=== PATIENT | female | born 1960 | race Caucasian/White ===

== ENCOUNTER 2019-09-27 12:01 | Emergency (ER) | payer OTHER, SELFPAY ==
[2019-09-27] MEDS ORDERED: LIDOCAINE 1% W/EPI 1:100,000 MDV 20 ML VIAL ONE (12:18)
--- NOTE | 2019-09-27 12:52 | ER ---
Nurse's Notes [facility] Name: Pippa St Age: 58 yrs Sex: Female : 1960 Arrival Date: 09/27/2019 Time: 12:04 Bed 19 Private MD: Capri Scott H Diagnosis: Left hand laceration Presentation: 09/26 12:12 Chief complaint: Patient states: Laceration to top of L hand that occurred 45 minutes ss ago while cleaning glass. Coronavirus screen: Proceed with normal triage. Ebola Screen: Patient denies exposure to infectious person. Patient denies travel to an Ebola-affected area in the 21 days before illness onset. Complicating Factors: There are no complicating factors for this patient. Initial Sepsis Screen: Does the patient meet any 2 criteria? No. Patient's initial sepsis screen is negative. Does the patient have a suspected source of infection? No. Patient's initial sepsis screen is negative. Risk Assessment: Do you want to hurt yourself or someone else? Patient reports no desire to harm self or others. Onset of symptoms was September 27, 2019. 12:12 Method Of Arrival: Ambulatory ss 12:12 Acuity: TORRI 4 ss Historical: - Allergies: 12:15 Minocin; ss - PSHx: 12:15 Tubal ligation; Appendectomy; skin graft left arm; breast implants; Hysterectomy; ss - Immunization history:: Adult Immunizations up to date. - Social history:: Smoking status: Patient denies any tobacco usage or history of. Screenin:59 Abuse screen: Denies threats or abuse. Nutritional screening: No deficits noted. Tuberculosis screening: No symptoms or risk factors identified. Fall Risk None identified. Assessment: 12:15 General: Appears uncomfortable, Behavior is calm, cooperative. Pain: Denies pain. Neuro: Level of Consciousness is awake, alert, Oriented to person, place, time. Cardiovascular: Heart tones S1 S2 Capillary refill < 3 seconds Patient's skin is warm and dry. Respiratory: Airway is patent Respiratory effort is even, unlabored, Respiratory pattern is regular, symmetrical, Breath sounds are clear bilaterally. GI: Bowel sounds present X 4 quads. : No signs and/or symptoms were reported regarding the genitourinary system. EENT: No signs and/or symptoms were reported regarding the EENT system. Derm: No signs and/or symptoms reported regarding the dermatologic system. Musculoskeletal: Circulation, motion, and sensation intact. Capillary refill Reports. Injury Description: Laceration sustained to dorsum of left hand is jagged, 2.6 to 7.5 cm long, was sustained 30-60 minutes ago. is bleeding moderately a dressing was applied. Vital Signs: 12:12 Resp 16; Weight 62.6 kg; Height 5 ft. 7 in. (170.18 cm); Pain 5/10; ss 12:15 BP 139 / 79; Pulse 74; Resp 17; Temp 98.6; Pulse Ox 100% ; 12:15 Pain 6/10; ss 13:01 BP 138 / 74; Pulse 75; Resp 18; Pulse Ox 98% ; 12:12 Body Mass Index 21.61 (62.60 kg, 170.18 cm) ED Course: 12:04 Patient arrived in ED. am2 12:04 Capri Scott DO is Private Physician. am2 12:08 Julian Hidalgo MD is Attending Physician. ps1 12:14 Triage completed. 12:15 Arm band placed on right wrist. 12:50 Capri Scott DO is Referral Physician. [facility] 12:51 Mariana Gar RN is Primary Nurse. 12:59 Patient has correct armband on for positive identification. Bed in low position. Call light in reach. 13:00 Assist provider with laceration repair on left hand using sutures. Set up tray. ah Performed by Julian Hidalgo MD Dressed with Kerlix, Neosporin, Patient tolerated well. wrist splint applied. 13:12 Patient did not have IV access during this emergency room visit. Administered Medications: No medications were administered Outcome: 12:51 Discharge ordered by . ps1 13:02 Discharged to home ambulatory. 13:02 Condition: good 13:02 Discharge instructions given to patient, Instructed on discharge instructions, wound care, Demonstrated understanding of instructions, follow-up care. 13:12 Patient left the ED. Signatures: Teri Conde RN RN Brit Palacio 2 Julian Hidalgo MD MD ps1 Mariana Gar RN RN
--- NOTE | 2019-09-27 12:52 | EDPHYS ---
Physician Documentation [facility] Name: Pippa St Age: 58 yrs Sex: Female : 1960 Arrival Date: 09/27/2019 Time: 12:04 Bed 19 Private MD: Capri Scott H ED Physician Julian Hidalgo HPI: 09/26 12:42 This 58 yrs old Female presents to ER via Ambulatory with complaints of ps1 Laceration To Arm, Laceration To Hand. 12:42 Patient was working with a friend and did not see a piece of glass that was hanging ps1 under a cabinet. Has a laceration to dorsal aspect of left hand. Laceration is irregular Appx 8 cm in length with tag. Bleeding controlled REFRIGERATOR TESTER with pressure. Pain is mild. FROM. . Historical: - Allergies: 12:15 Minocin; ss - PSHx: 12:15 Tubal ligation; Appendectomy; skin graft left arm; breast implants; Hysterectomy; ss - Immunization history:: Adult Immunizations up to date. - Social history:: Smoking status: Patient denies any tobacco usage or history of. ROS: 12:42 Constitutional: Negative for fever, chills, and weight loss, Eyes: Negative for injury, ps1 pain, redness, and discharge, ENT: Negative for injury, pain, and discharge, Cardiovascular: Negative for chest pain, palpitations, and edema, Respiratory: Negative for shortness of breath, cough, wheezing, and pleuritic chest pain, Abdomen/GI: Negative for abdominal pain, nausea, vomiting, diarrhea, and constipation, Skin: Negative for injury, rash, and discoloration. 12:42 MS/extremity: Positive for laceration, tenderness, of the dorsum of left hand. Exam: 12:42 Constitutional: This is a well developed, well nourished patient who is awake, alert, ps1 and in no acute distress. Head/Face: Normocephalic, atraumatic. Eyes: Pupils equal round and reactive to light, extra-ocular motions intact. Lids and lashes normal. Conjunctiva and sclera are non-icteric and not injected. Neck: Trachea midline, no thyromegaly or masses palpated, and no cervical lymphadenopathy. Supple, full range of motion without nuchal rigidity, or vertebral point tenderness. No Meningismus. 12:42 Chest/axilla: Inspection: normal. 12:42 Cardiovascular: Rate: normal, Rhythm: regular. 12:42 Respiratory: the patient does not display signs of respiratory distress, Respirations: normal. 12:42 Abdomen/GI: Inspection: abdomen appears normal. 12:42 Musculoskeletal/extremity: Extremities: grossly normal except: noted in the dorsum of left hand: laceration. Vital Signs: 12:12 Resp 16; Weight 62.6 kg; Height 5 ft. 7 in. (170.18 cm); Pain 5/10; ss 12:15 BP 139 / 79; Pulse 74; Resp 17; Temp 98.6; Pulse Ox 100% ; ss 12:15 Pain 6/10; ss 13:01 BP 138 / 74; Pulse 75; Resp 18; Pulse Ox 98% ; ah 12:12 Body Mass Index 21.61 (62.60 kg, 170.18 cm) ss Laceration: 12:42 Wound Repair of 8cm ( 3.1in ) subcutaneous laceration to dorsum of left hand. Distal ps1 neuro/vascular/tendon intact. Anesthesia: Local anesthetic administered with 5 mls of 1% lidocaine w/ Epi. Wound prep: Moderate cleansing. Skin closed with 8 5-0 Prolene using simple sutures and sterile technique. Dressed with Bacitracin, 4x4's. Patient tolerated well. MDM: 12:37 Patient medically screened. ps1 12:51 Data reviewed: vital signs, nurses notes, and as a result, I will discharge patient. ps1 Counseling: I had a detailed discussion with the patient and/or guardian regarding: the historical points, exam findings, and any diagnostic results supporting the discharge/admit diagnosis, the need for outpatient follow up, a family practitioner, to return to the emergency department if symptoms worsen or persist or if there are any questions or concerns that arise at home. Administered Medications: No medications were administered Disposition: 09/27/19 12:51 Discharged to Home. Impression: Left hand laceration. - Condition is Stable. - Discharge Instructions: Laceration Care, Adult. - Medication Reconciliation Form, Thank You Letter, Antibiotic Education, Prescription Opioid Use form. - Follow up: Capri Sctot DO; When: 7 - 10 days; Reason: Recheck today's complaints, Continuance of care, Staple/Suture removal, Re-evaluation by your physician. Follow up: Emergency Department; When: As needed; Reason: Fever > 102 F, Worsening of condition. Signatures: Teri Conde RN RN Julian Hidalgo MD MD [facility] Mariana Gar RN RN Corrections: (The following items were deleted from the chart) 12:45 12:42 Patient was working with a friend and did not see a piece of glass that was ps1 hanging under a cabinet. Has a laceration to volar aspect of left hand. Laceration is irregular appx 8cm in length with tag. Bleeding controlled REFRIGERATOR TESTER with pressure. Pain is mild. FROM. . ps1 13:12 12:51 09/27/2019 12:51 Discharged to Home. Impression: Left hand laceration. Condition ah is Stable. Forms are Medication Reconciliation Form, Thank You Letter, Antibiotic Education, Prescription Opioid Use. Follow up: aCpri Scott; When: 7 - 10 days; Reason: Recheck today's complaints, Continuance of care, Staple/Suture removal, Re-evaluation by your physician. Follow up: Emergency Department; When: As needed; Reason: Fever > 102 F, Worsening of condition. ps1
[2019-09-27 13:31] VITALS: TEMP 98.6
[2019-09-27 13:32] VITALS: BP 138/74; O2SAT 98
== END 2019-09-27 13:12 | disposition home or self-care (01) ==
LOC: ER 12:01
PROC: 0JQK0ZZ Repair Left Hand Subcutaneous Tissue and Fascia, Open Approach (ICD-10-PCS; principal; 2019-09-27)
DX: S61.412A Laceration without foreign body of left hand, initial encounter (principal); W25.XXXA Contact with sharp glass, initial encounter; Y93.89 Activity, other specified; Y92.9 Unspecified place or not applicable; Z98.82 Breast implant status; Z88.8 Allergy status to other drugs, medicaments and biological substances
CPT/HCPCS: 99283

== ENCOUNTER 2021-03-12 21:06 | Observation (INO) | payer SELFPAY ==
[2021-03-12 23:07] LABS: SARS-COV-2 RT PCR NEGATIVE (NEGATIVE)
[2021-03-12 23:29] LABS: Urine Blood Negative (Negative); Urine Glucose Negative (Negative); Urine Protein Negative (Negative); Urine Specific Gravity 1.015 (1.005-1.030)
[2021-03-12 23:38] LABS: Absolute Lymphocytes (CBC) 1.9 K/uL (0.7-4.9); Basophils % 0.5 % (0-1.3); Hematocrit 34.5 % (36.0-45.0); Lymphocytes % 32.3 % (15.3-44.8); RBC Red Blood Cell Count 3.74 M/uL (3.86-4.86)
[2021-03-12 23:39] LABS: Protime INR 0.97
[2021-03-12] MEDS ORDERED: NA CHLORIDE 0.9% 250 ML ONE (23:49)
[2021-03-12 23:55] LABS: Urine Bacteria <20 /HPF (<20); Urine RBC NONE SEEN /HPF (NONE SEEN)
[2021-03-12 23:58] LABS: ALT/SGPT 81 U/L (12-78); AST/SGOT 58 U/L (15-37); Albumin 3.8 g/dL (3.4-5.0); Alkaline Phosphatase 85 U/L (45-117); BUN Blood Urea Nitrogen 12 mg/dL (7-18); Bicarbonate 29 mmol/L (21-32); Bilirubin Direct < 0.1 mg/dL (0-0.2); Bilirubin Total 0.2 mg/dL (0.2-1.0); Glucose Level 127 mg/dL (74-106); Lipase 102 U/L (73-393); Magnesium 2.3 mg/dL (1.8-2.4); NT PRO-BNP 180 pg/mL (<125); Protein, Total 7.1 g/dL (6.4-8.2); Sodium Level 143 mmol/L (136-145); Troponin (Emerg Dept Use Only) < 0.02 ng/mL (0.0-0.045)
--- NOTE | 2021-03-13 03:27 | ER ---
Nurse's Notes [facility] Name: Pippa John Age: 60 yrs Sex: Female : 1960 Arrival Date: 03/12/2021 Time: 21:08 Bed 20 Private MD: Diagnosis: Chest pain, unspecified Presentation: 03/12 21:42 Chief complaint: Patient states: Tuesday03/09/21, pt stated shortness of breath, chest vg1 pain, and sore throat, VIVIANE ear pain and cough began and has been getting worse. Pt states nausea and constipation. Stated took Sprague 10 mg around 1930. Coronavirus screen: Vaccine status: Patient reports being unvaccinated. Client presents with at least one sign or symptom that may indicate coronavirus-19. Standard/surgical mask placed on the client. Ebola Screen: Patient negative for fever greater than or equal to 101.5 degrees Fahrenheit, and additional compatible Ebola Virus Disease symptoms. Initial Sepsis Screen: Does the patient meet any 2 criteria? No. Patient's initial sepsis screen is negative. Does the patient have a suspected source of infection? No. Patient's initial sepsis screen is negative. Risk Assessment: Do you want to hurt yourself or someone else? Patient reports no desire to harm self or others. Onset of symptoms was March 09, 2021. 21:42 Method Of Arrival: Ambulatory vg1 21:42 Acuity: TORRI 3 vg1 Triage Assessment: 21:46 General: Appears in no apparent distress. uncomfortable, Behavior is calm, cooperative. vg1 Pain: Complains of pain in VIVIANE ears, throat, and chest. Respiratory: Reports cough that is Onset: The symptoms/episode began/occurred gradually, the patient has mild shortness of breath. Historical: - Allergies: 21:46 Minocin; vg1 21:46 Rocephin; vg1 21:46 Epinephrine; vg1 - Home Meds: 21:46 Sprague 10-325 mg Oral tab [Active]; Temazepam Oral [Active]; vg1 - PSHx: 21:46 Tubal; Skin graft Left arm; Hysterectomy; vg1 - Immunization history:: Adult Immunizations up to date, Client reports having NOT received the Covid vaccine. - Social history:: Smoking status: Patient denies any tobacco usage or history of. Screenin:00 Abuse screen: Denies threats or abuse. Denies injuries from another. Nutritional bs2 screening: No deficits noted. Tuberculosis screening: No symptoms or risk factors identified. Fall Risk None identified. Assessment: 23:00 General: Appears in no apparent distress. comfortable, slender, well groomed, well bs2 developed, well nourished, Behavior is calm, cooperative, appropriate for age. Pain: Complains of pain in chest and abdomen Pain currently is 6 out of 10 on a pain scale. Neuro: No deficits noted. Cardiovascular: Reports chest pain, shortness of breath, Rhythm is regular. Respiratory: Airway is patent Respiratory effort is even, unlabored, Breath sounds are clear bilaterally. GI: No signs and/or symptoms were reported involving the gastrointestinal system. : No signs and/or symptoms were reported regarding the genitourinary system. EENT: No signs and/or symptoms were reported regarding the EENT system. Derm: No signs and/or symptoms reported regarding the dermatologic system. Musculoskeletal: No signs and/or symptoms reported regarding the musculoskeletal system. Vital Signs: 21:42 BP 151 / 73; Pulse 62; Resp 18; Temp 98.3; Pulse Ox 100% ; Weight 58.97 kg; Height 5 vg1 ft. 7 in. (170.18 cm); Pain 5/10; 21:42 Body Mass Index 20.36 (58.97 kg, 170.18 cm) vg1 ED Course: 21:08 Patient arrived in ED. cf2 21:46 Triage completed. vg1 21:46 Arm band placed on. vg1 21:58 EKG completed in triage. Results shown to MD. vg1 22:05 EKG done, COVID swab sent to lab. Flu and/or RSV swab sent to lab. vg1 22:44 Yuli Diehl, YONG is Primary Nurse. bs2 22:47 Jared Hannon PA is PHCP. cp 22:47 Parmjit Will MD is Attending Physician. cp 23:00 Patient has correct armband on for positive identification. Bed in low position. Call bs2 light in reach. Side rails up X 1. ssds mk 2 advanced operator on. Pulse ox on. NIBP on. Door closed. Lights dimmed. Warm blanket given. 23:00 Inserted saline lock: 20 gauge in right antecubital area, using aseptic technique. bs2 Blood collected. 23:27 Urine Microscopic Only Sent. bs2 03/13 00:11 XRAY Chest (1 view) In Process Unspecified. EDMS 01:44 CT Aorta for Dissection Sent. df1 01:50 CT Aorta for Dissection In Process Unspecified. EDMS 03:26 Thien Burk MD is Hospitalizing Provider. cp 05:01 Group A Streptococcus Rapid Sc Sent. df1 05:01 Strep Sent. df1 07:02 No provider procedures requiring assistance completed. bs2 Administered Medications: 03/12 23:27 Drug: NS 0.9% 500 ml Route: IV; Rate: bolus; Site: right antecubital; bs2 03/13 07:03 Follow up: IV Status: Completed infusion bs2 05:01 Drug: morphine 2 mg Route: IVP; Site: right antecubital; df1 Outcome: 03:26 Decision to Hospitalize by Provider. cp 11:06 Patient left the ED. iw Signatures: Dispatcher [employer] EDSharifa De Paz RN RN iw Jared Hannon PA PA Marleni Bhatti cf2 Grace Redman, RN RN vg1 Yuli Diehl RN RN bs2 Lisa Martínez df1
--- NOTE | 2021-03-13 03:27 | EDPHYS ---
Physician Documentation [facility] Name: Pippa John Age: 60 yrs Sex: Female : 1960 Arrival Date: 03/12/2021 Time: 21:08 Bed 20 Private MD: ED Physician Parmjit Will HPI: 03/12 23:15 This 60 yrs old Female presents to ER via Ambulatory with complaints of cp Shortness Of Breath, Chest Pain, Eye Problem, Sore Throat, Arm Burn. 23:15 The patient or guardian reports chest pain that is located primarily in the substernal cp area, epigastric area. 23:15 Onset: 3 day(s) ago. The pain radiates to the left arm, back. Associated signs and cp symptoms: Pertinent positives: cough, shortness of breath, sore throat, Pertinent negatives: diaphoresis, dizziness, lower extremity pain, lower extremity swelling, syncope, vomiting. The chest pain is described as aching. Duration: The patient or guardian reports multiple episodes, that wax and wane. Modifying factors: the symptoms are aggravated by activity. Severity of pain: in the emergency department the pain has improved moderately. Historical: - Allergies: 21:46 Minocin; vg1 21:46 Rocephin; vg1 21:46 Epinephrine; vg1 - Home Meds: 21:46 Shickley 10-325 mg Oral tab [Active]; Temazepam Oral [Active]; vg1 - PSHx: 21:46 Tubal; Skin graft Left arm; Hysterectomy; vg1 - Immunization history:: Adult Immunizations up to date, Client reports having NOT received the Covid vaccine. - Social history:: Smoking status: Patient denies any tobacco usage or history of. ROS: 23:20 Constitutional: Negative for body aches, chills, fever, poor PO intake. cp 23:20 Eyes: Negative for injury, pain, redness, and discharge. cp 23:20 ENT: Positive for sore throat, Negative for drainage from ear(s), ear pain, difficulty swallowing, difficulty handling secretions. 23:20 Neck: Negative for pain with movement, pain at rest, stiffness. 23:20 Cardiovascular: Positive for chest pain, Negative for edema, palpitations. 23:20 Respiratory: Positive for cough, shortness of breath, Negative for wheezing. 23:20 Abdomen/GI: Positive for abdominal pain, Negative for vomiting, diarrhea, constipation. 23:20 Back: Positive for radiated pain. 23:20 Neuro: Negative for altered mental status, dizziness, headache, syncope, weakness. 23:20 All other systems are negative. Exam: 23:25 Constitutional: The patient appears in no acute distress, alert, awake, cp non-diaphoretic, non-toxic, well developed, well nourished. 23:25 Head/Face: Normocephalic, atraumatic. cp 23:25 Eyes: Periorbital structures: appear normal, Pupils: equal, round, and reactive to light and accomodation, Extraocular movements: intact throughout, Conjunctiva: normal, no exudate, no injection, Sclera: no appreciated abnormality, Lids and lashes: appear normal, bilaterally. 23:25 ENT: External ear(s): are unremarkable, Nose: is normal, Mouth: Lips: moist, Oral mucosa: pink and intact, moist, Posterior pharynx: Airway: no evidence of obstruction, patent, Tonsils: are normal in appearance, swelling, is not appreciated, erythema, is not appreciated, exudate, is not appreciated. 23:25 Neck: ROM/movement: is normal, is supple, without pain, no range of motions limitations, no meningismus, Lymph nodes: no appreciated lymphadenopathy. 23:25 Chest/axilla: Inspection: normal, Palpation: is normal, no crepitus, no tenderness. 23:25 Cardiovascular: Rate: normal, Rhythm: regular, Pulses: Pulses are 2+ in right radial artery and left radial artery. Edema: is not appreciated, JVD: is not appreciated. 23:25 Respiratory: the patient does not display signs of respiratory distress, Respirations: normal, no use of accessory muscles, no retractions, labored breathing, is not present, Breath sounds: are clear throughout, no decreased breath sounds, no stridor, no wheezing. 23:25 Abdomen/GI: Inspection: abdomen appears normal, Bowel sounds: active, all quadrants, Palpation: soft, in all quadrants, moderate abdominal tenderness, in the epigastric area, rebound tenderness, is not appreciated, involuntary guarding, is not appreciated. 23:25 Back: CVA tenderness, is absent. 23:25 Skin: no rash present. 23:25 Neuro: Orientation: to person, place \T\ time. Mentation: is normal, Motor: moves all fours, strength is normal, Sensation: is normal. 03/13 02:37 ECG was reviewed by the Attending Physician. cp Vital Signs: 03/12 21:42 BP 151 / 73; Pulse 62; Resp 18; Temp 98.3; Pulse Ox 100% ; Weight 58.97 kg; Height 5 vg1 ft. 7 in. (170.18 cm); Pain 5/10; 21:42 Body Mass Index 20.36 (58.97 kg, 170.18 cm) vg1 MDM: 22:58 Patient medically screened. cp 23:40 Differential diagnosis: abnormal EKG, acute myocardial infarction, acute pericarditis, cp cholecystitis, Cholelithiasis costochondritis, esophagitis, gastritis, pneumonia, pneumothorax, pulmonary embolus, stable angina, unstable angina. 03/13 03:30 Data reviewed: vital signs, nurses notes, lab test result(s), EKG, radiologic studies, cp CT scan, plain films. 03:30 Test interpretation: by ED physician or midlevel provider: ECG, plain radiologic cp studies. Counseling: I had a detailed discussion with the patient and/or guardian regarding: the historical points, exam findings, and any diagnostic results supporting the discharge/admit diagnosis, lab results, radiology results, the need for further work-up and treatment in the hospital. Response to treatment: the patient's symptoms have markedly improved after treatment. Physician consultation: Sonny Belcher was contacted at 03:25, regarding admission, to the telemetry unit. patient's condition. 03/12 23:07 Order name: Basic Metabolic Panel; Complete Time: 00:08 cp 03/13 00:56 Interpretation: Normal except: CL 109; GLUC 127; CRE 0.44. cp 03/12 23:07 Order name: CBC with Diff; Complete Time: 00:08 cp 03/13 00:57 Interpretation: Normal except: RBC 3.74; HGB 11.6; HCT 34.5. cp 03/12 23:07 Order name: LFT's; Complete Time: 00:08 cp 03/13 02:05 Interpretation: Normal except: AST 58; ALT 81. cp 03/12 23:07 Order name: Magnesium; Complete Time: 00:08 cp 03/12 23:07 Order name: NT PRO-BNP; Complete Time: 00:08 cp 03/12 23:07 Order name: PT-INR; Complete Time: 00:08 cp 03/12 23:07 Order name: Troponin (emerg Dept Use Only); Complete Time: 00:08 cp 03/13 02:05 Interpretation: Within normal limits: TROPED < 0.02. cp 03/12 23:07 Order name: Lipase; Complete Time: 00:08 cp 03/13 02:06 Interpretation: Reviewed. cp 03/12 23:07 Order name: Urine Microscopic Only; Complete Time: 00:08 cp 03/12 23:07 Order name: COVID-19/FLU A+B; Complete Time: 00:08 EDMS 03/12 23:28 Order name: Urine Dipstick-Ancillary; Complete Time: 00:08 EDMS 03/13 02:05 Interpretation: Normal except: UESTR 1+. cp 03/13 04:17 Order name: Strep la1 03/12 23:07 Order name: XRAY Chest (1 view) cp 03/12 23:07 Order name: EKG; Complete Time: 23:08 cp 03/12 23:07 Order name: Cardiac monitoring; Complete Time: 23:27 cp 03/12 23:07 Order name: EKG - Nurse/Tech; Complete Time: 23:27 cp 03/12 23:07 Order name: IV Saline Lock; Complete Time: 23:27 cp 03/12 23:07 Order name: Labs collected and sent; Complete Time: 23:27 cp 03/13 00:09 Order name: CT Aorta for Dissection cp 03/13 04:18 Order name: Group A Streptococcus Rapid Sc EDMS 03/13 06:48 Order name: CBC with Automated Diff EDMS 03/13 07:10 Order name: Comprehensive Metabolic Panel EDMS 03/13 07:10 Order name: Troponin I EDMS 03/13 07:10 Order name: Lipid Profile EDMS 03/13 07:10 Order name: T4 Free EDMS 03/13 07:10 Order name: Thyroid Stimulating Hormone EDMS 03/12 23:07 Order name: O2 Per Protocol; Complete Time: 23:27 cp 03/12 23:07 Order name: O2 Sat Monitoring; Complete Time: 23:27 cp 03/12 23:07 Order name: Urine Dipstick-Ancillary (obtain specimen); Complete Time: 23:27 cp EC:37 Rate is 50 beats/min. Rhythm is regular. [place] interval is normal. QRS interval is normal. cp QT interval is normal. T waves are Inverted in leads aVL, aVR. Interpreted by me. Reviewed by me. Administered Medications: 03/12 23:27 Drug: NS 0.9% 500 ml Route: IV; Rate: bolus; Site: right antecubital; bs2 03/13 07:03 Follow up: IV Status: Completed infusion bs2 05:01 Drug: morphine 2 mg Route: IVP; Site: right antecubital; df1 Disposition Summary: 03/13/21 03:26 Hospitalization Ordered Hospitalization Status: Observation cp Provider: Thien Burk cp Condition: Stable cp Problem: new cp Symptoms: have improved cp Bed/Room Type: Standard cp Location: [facility] ER HOLD(03/13/21 04:16) tl1 Room Assignment: ERHOLD-(03/13/21 04:16) tl1 Diagnosis - Chest pain, unspecified cp Forms: - Medication Reconciliation Form cp - SBAR form cp Addendum: 03/14/2021 13:00 Co-signature as Attending Physician, Parmjit Will MD PA/SCRAPPER's history reviewed, m a2 patient interviewed, and examined. I agree with assessment and care plan and confirm the diagnosis (es) above. Signatures: Dispatcher [employer] EDWA Rehana Pimentel, RN RN tl1 Jared Hannon PA PA cp Parmjit Will MD MD maGrace Cristina RN RN vg1 Yuli Diehl RN RN bs2 Lisa Martínez df1 Corrections: (The following items were deleted from the chart) 03/12 22:21 22:01 CORONAVIRUS+MR.LAB.BRZ ordered. EDWA EDMS 22:22 22:01 Influenza Screen (A \T\ B)+BA.LAB.BRZ ordered. EDWA EDWA 03/13 04:16 03:26 Telemetry/MedSurg (observation) cp tl1 04:16 03:26 cp tl1
--- NOTE | 2021-03-13 04:20 | P.HP ---
Certification for Inpatient Patient admitted to: Observation With expected LOS: <2 Midnights Patient will require the following post-hospital care: None Practitioner: I am a practitioner with admitting privileges, knowledge of patient current condition, hospital course, and medical plan of care. Services: Services provided to patient in accordance with Admission requirements found in Title 42 Section 412.3 of the Code of Federal Regulations <YeSonny Heredia - Last Filed: 03/13/21 04:16> Patient History Date of Service: 03/13/21 Primary Care Provider: Dr. Scott Reason for admission: Chest pain History of Present Illness: 60-year-old female who is otherwise healthy presents emergency de partment for chest pain. Patient reports intermittent pressure/tightness of the chest radiating to the shoulders, back over the course of the last few days. Patient was evaluated in the emergency department labs are significant for hemoglobin 9.6 medical 34.5 BNP 180 EKG without acute changes initial troponin negative. Chest pain is not associated with any dizziness lightheadedness, palpitations, nausea, vomiting. Patient has never had cardiac evaluation of any kind and does have family history, ED provider wishes to admit under observation for chest pain rule out. - Past Medical/Surgical History -: None -: Tubal ligation -: Skin graft -: Hysterectomy Psychosocial/ Personal History: Lives at home with family - Family History Father -: Heart disease Mother -: Heart disease - Social History Smoking Status: Former smoker Alcohol use: No CD- Drugs: No Caffeine use: Yes Place of Residence: Home <Sonny Belcher - Last Filed: 03/13/21 04:16> Date of Service: 03/13/21 <Thien Burk - Last Filed: 03/13/21 19:33> Allergies No Known Allergies Allergy (Unverified 08/30/16 12:05) Review of Systems 10-point ROS is otherwise unremarkable ENT: Throat Pain Respiratory: Cough, Dry Cardiovascular: Chest Pain <Sonny Belcher - Last Filed: 03/13/21 04:16> Physical Examination - Physical Exam General: Alert, In no apparent distress, Oriented x3 HEENT: Atraumatic, PERRLA, Mucous membr. moist/pink, EOMI, Sclerae nonicteric Neck: Supple, 2+ carotid pulse no bruit, No LAD, Without JVD or thyroid abnormality Respiratory: Clear to auscultation bilaterally, Normal air movement Cardiovascular: Regular rate/rhythm, Normal S1 S2 Gastrointestinal: Normal bowel sounds, No tenderness Musculoskeletal: No tenderness Integumentary: No rashes Neurological: Normal speech, Normal strength at 5/5 x4 extr, Normal tone, Normal affect - Studies Laboratory Data (last 24 hrs) 03/12/21 23:22: PT 11.1, INR 0.97 03/12/21 23:22: WBC 5.90, Hgb 11.6 L, Hct 34.5 L, Plt Count 198 03/12/21 23:22: Sodium 143, Potassium 4.0, BUN 12, Creatinine 0.44 L, Glucose 127 H, Magnesium 2.3, Total Bilirubin 0.2, AST 58 H, ALT 81 H, Alkaline Phosphatase 85, Lipase 102 <Sonny Belcher - Last Filed: 03/13/21 04:16> - Studies Laboratory Data (last 24 hrs) 03/12/21 23:22: PT 11.1, INR 0.97 03/12/21 23:22: WBC 5.90, Hgb 11.6 L, Hct 34.5 L, Plt Count 198 03/12/21 23:22: Sodium 143, Potassium 4.0, BUN 12, Creatinine 0.44 L, Glucose 127 H, Magnesium 2.3, Total Bilirubin 0.2, AST 58 H, ALT 81 H, Alkaline Phosphatase 85, Lipase 102 <Thien Burk - Last Filed: 03/13/21 19:33> Assessment and Plan - Plan Assessment: Chest pain rule out ACS Plan: Chest pain rule out ACS: Monitor on telemetry, trend troponins, obtain thyroid/lipid panel. Cardiology consult in place, patient has not had any cardiology evaluation in the past, will need to follow-up with PCP and cardiology on discharge. Initial troponin and EKG unremarkable suspect cardiology will prefer outpatient work-up. Initiated beta- scottie/statin/aspirin therapy. As needed pain medication. Patient also does report some viral symptoms including sore throat, cough have ordered strep swab and Mucinex. CT dissection protocol negative for any acute findings. Apprec iate further input from cardiology. DVT PPX: Lovenox Code status: Full Discharge Plan: Home Plan to discharge in: 24 Hours - Advance Directives Does patient have a Living Will: No Does patient have a Durable POA for Healthcare: No - Code Status/Comfort Care Code Status Assessed: Yes (FC) Critical Care: No Time Spent Managing Pts Care (In Minutes): 55 <Sonny Belcher - Last Filed: 03/13/21 04:16>
[2021-03-13] MEDS ORDERED: GUAIFENESIN 600 MG SA TAB PO PRN (04:39)
[2021-03-13] MEDS ORDERED: MORPHINE 2 MG/ML SYR IV PRN (04:39)
[2021-03-13] MEDS ORDERED: ONDANSETRON 4 MG/2 ML VIAL IV PRN (04:39)
[2021-03-13] MEDS ORDERED: NA CHLORIDE 0.9% 0 ML ONE (05:10)
[2021-03-13] MEDS ORDERED: MORPHINE 2 MG/ML SYR ONE (05:10)
[2021-03-13] MEDS ORDERED: METOPROLOL TAR 25 MG TAB PO SCH (06:00)
[2021-03-13 06:41] LABS: Absolute Lymphocytes (CBC) 1.6 K/uL (0.7-4.9); Basophils % 0.4 % (0-1.3); Hematocrit 34.3 % (36.0-45.0); Lymphocytes % 33.2 % (15.3-44.8); MPV 8.6 fL (7.6-11.3); RBC Red Blood Cell Count 3.65 M/uL (3.86-4.86)
--- NOTE | 2021-03-13 07:07 | RAD REPORT ---
EXAM DESCRIPTION: RAD - Chest Single View - 03/13/2021 12:06 am CLINICAL HISTORY: CHEST PAIN COMPARISON: CHEST PA AND LAT 2 VIEW dated 10/09/2014; CHEST SINGLE VIEW dated 02/27/2014; ABDOMEN 1 EW KUB dated 09/25/2012; CHEST PA AND LAT 2 VIEW dated 11/18/2008; Angio Aorta For Dissection dated 03/13/2021 FINDINGS: Lines: None. Lungs: No evidence of edema or pneumonia. Pleural: No significant pleural effusions or pneumothorax. Cardiac: The heart size is within normal limits. Bones: No acute fractures. Other: IMPRESSION: No acute cardiopulmonary disease.
[2021-03-13 07:10] LABS: ALT/SGPT 101 U/L (12-78); AST/SGOT 67 U/L (15-37); Albumin 3.6 g/dL (3.4-5.0); Alkaline Phosphatase 82 U/L (45-117); BUN Blood Urea Nitrogen 8 mg/dL (7-18); Bicarbonate 23 mmol/L (21-32); Bilirubin Total 0.3 mg/dL (0.2-1.0); Glucose Level 106 mg/dL (74-106); HDL Cholesterol 64 mg/dL (40-60); LDL Cholesterol, Calculated 107 (<130); Protein, Total 6.6 g/dL (6.4-8.2); Sodium Level 143 mmol/L (136-145); Troponin I < 0.02 ng/mL (0.0-0.045)
[2021-03-13] MEDS ORDERED: ASPIRIN EC 81 MG TAB PO SCH (09:00)
[2021-03-13] MEDS ORDERED: ENOXAPARIN 40 MG/0.4 ML SQ SCH (09:00)
--- NOTE | 2021-03-13 10:40 | EKG ---
Test Date: 2021-03-13 Test Time: 02:17:41 Casing Fluid Tender: LYLE MEASUREMENT RESULTS: Intervals: Rate: 50 MS: 166 QRSD: 86 QT: 440 QTc: 401 [place]: P: 78 MS: 166 QRS: 84 T: 75 INTERPRETIVE STATEMENTS: Sinus bradycardia Otherwise normal ECG No previous ECG available for comparison Electronically Signed On 03-13-21 10:39:39 CDT by Fercho Sellers
[2021-03-13 10:48] VITALS: BP 149/66; TEMP 97.8
[2021-03-13 11:12] VITALS: O2SAT 100
--- NOTE | 2021-03-13 14:35 | RAD REPORT ---
EXAM DESCRIPTION: CT - Angio Aorta For Dissection - 03/13/2021 6:36 am COMPARISON: None. CLINICAL HISTORY: [facility] Chest pain, Abdominal distention TECHNIQUE: CTA of the chest, abdomen and pelvis was acquired with IV contrast material. Coronal and sagittal reconstructions were obtained. MIPS reformats are provided. Automated exposure control was u tilized on this examination as a dose lowering technique. FINDINGS: CTA FINDINGS: No dissection or aneurysm. Severe focal calcified and soft atherosclerosis at the aortic bifurcation with approximately 30% stenosis of the left common iliac artery. 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 NONVASCULAR CHEST FINDINGS: Heart and mediastinum: Heart size is normal. No lymphadenopathy. Thyroid gland: A 1.6 cm right thyroid nodule is noted. Lungs: Mild bibasilar atelectasis. Airways: No filling defects. No bronchiectasis. Pleura: No pneumothorax. No significant pleural effusion. Musculoskeletal and soft tissues: Within normal limits for age. NONVASCULAR ABDOMEN & PELVIS FINDINGS: Liver: Normal. Gallbladder and biliary: Normal gallbladder. Unremarkable biliary tree. Pancreas: Normal. Spleen: Normal. Kidneys and adrenal glands: Mild bilateral adrenal hyperplasia. Normal kidneys Stomach and Small Bowel: Normal stomach. There is a 1.5 cm duodenal diverticulum. Urinary bladder: Bladder wall thickening is present. Uterus and Adnexa: The uterus is atrophic or absent. Colon and Appendix: The colon demonstrates a large stool burden. No evidence of appendicitis. Peritoneal cavity: No ascites or free air. Retroperitoneum and lymph nodes: Normal. Musculoskeletal and soft tissues: Soft tissues are unremarkable. No aggressive bone lesions. No com pression fracture. IMPRESSION: CHEST IMPRESSION: 1. No acute chest process. 2. 1.6 cm right thyroid nodule. Recommend thyroid ultrasound. ABDOMEN AND PELVIS IMPRESSION: 1. Bladder wall thickening may be seen with cystitis in the appropriate setting. 2. Constipation. 3. 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 Electronically signed by: Cortez Pichardo MD 03/13/2021 2:23 AM CDT Due to temporary technical issues with the PACS/Fluency reporting system, reports are being signed by the in house radiologists without review as a courtesy to insure prompt reporting. The interpreting radiologist is fully responsible for the content of the report.
[2021-03-13] MEDS ORDERED: ATORVASTATIN 40 MG TAB PO SCH (21:00)
--- NOTE | 2021-03-15 18:16 | CON ---
Date of Consultation: 03/13/2021 Reason For Consultation: Chest pain. History Of Present Illness: Ms. John is a 60-year-old woman with no significant past car diac history, came in complaining of shortness of breath and chest pain, sore throat, arm pain. No n ausea, vomiting, diaphoresis. Denied PND, orthopnea, pedal edema, palpitation, or syncope. Stated t hat her pain radiated to the back and the left arm that was not exertional. She has had some cough. Denied any fever or chills. By the time we saw her, she has already ruled out for GA. Past Medical History: Negative. Allergies: SHE IS ALLERGIC TO ROCEPHIN, EPINEPHRINE, AND . Medications: At home include temazepam and [place]. Review of Systems: Negative. Social History: Negative. Family History: Noncontributory. Physical Examination: Vital Signs: Stable. She was afebrile. HEENT: Negative. Neck: Supple without any bruit, lymphadenopathy, JVD, or thyromegaly. Chest: Clear to auscultation and percussion. Cardiac: Revealed regular rhythm and rate without any murmurs, gallops, or rubs. Abdomen: Benign. Extremities: Revealed no clubbing, cyanosis, or edema. Diagnostic Data: All normal except for mild elevation of liver function test. She was negative for influenza and COVID. Chest x-ray and EKG were normal. CP dissection was normal. Impression And Plan: I think Ms. John's symptoms are more suggestive of gastroesophageal disease a nd musculoskeletal pain. Echocardiogram is pending. No need for any further cardiac workup at this point. If her symptoms continue, she could certainly have an outpatient stress test. No change in h er medical therapy for now. LULA/SEAN Voice ID: [id number] Report ID: [id number]
--- NOTE | 2021-03-17 18:20 | EKG ---
Test Date: 2021-03-12 Test Time: 21:55:21 Licensed Veterinary Technician: MEASUREMENT RESULTS: Intervals: Rate: 56 IN: 166 QRSD: 86 QT: 426 QTc: 411 [place]: P: 72 IN: 166 QRS: 82 T: 76 INTERPRETIVE STATEMENTS: Sinus bradycardia Otherwise normal ECG No previous ECG available for comparison Electronically Signed On 03-17-21 18:07:07 CDT by Fercho Sellers
== END 2021-03-13 11:12 | disposition home or self-care (01) ==
LOC: ER 21:06 → ERHOLD 03-13 04:32
PROVIDERS: ADMIT Hospitalist; ATTEND Hospitalist
DX: R07.9 Chest pain, unspecified (principal); J02.9 Acute pharyngitis, unspecified; R05.9 Cough, unspecified; R06.02 Shortness of breath; M79.603 Pain in arm, unspecified; E04.1 Nontoxic single thyroid nodule; Z20.822 Contact with and (suspected) exposure to COVID-19; Z88.1 Allergy status to other antibiotic agents; Z88.8 Allergy status to other drugs, medicaments and biological substances; Z87.891 Personal history of nicotine dependence; Z90.710 Acquired absence of both cervix and uterus; Z82.49 Family history of ischemic heart disease and other diseases of the circulatory system
CPT/HCPCS: 0240U; 36415; 71045; 71275; 74175; 80048; 80053; 80061; 80076; 81003; 81015; 83690; 83735; 83880; 84439; 84443; 84484; 85025; 85610; 87070; 87081; 93005; 96361; 96374; 99284; G0378; J2270; J7030; J7050; Q9967

== ENCOUNTER 2022-11-01 11:46 | Emergency (ER) | payer SELFPAY ==
--- NOTE | 2022-11-01 13:14 | RAD REPORT ---
EXAM DESCRIPTION: RAD - Chest Single View - 11/01/2022 1:00 pm CLINICAL HISTORY: CHEST PAIN Chest pain. COMPARISON: <Comparisons> FINDINGS: Portable technique limits examination quality. The lungs are grossly clear. The heart is normal in size. No displaced fractures. IMPRESSION: No acute intrathoracic process suspected.
[2022-11-01] MEDS ORDERED: PANTOPRAZOLE 40 MG INJ ONE (13:39)
[2022-11-01 13:41] LABS: Absolute Lymphocytes (CBC) 1.6 K/uL (0.7-4.9); Hematocrit 41.9 % (36.0-45.0); MCV 92.7 fL (80-100); MPV 8.3 fL (7.6-11.3); RBC Red Blood Cell Count 4.52 M/uL (3.86-4.86)
[2022-11-01 13:53] LABS: SARS-CoV-2 Antigen Rapid Res Negative (Negative)
[2022-11-01 14:01] LABS: Albumin 3.8 g/dL (3.4-5.0); Bilirubin Total 0.3 mg/dL (0.2-1.0); Magnesium 2.2 mg/dL (1.6-2.4); Potassium 4.3 mEq/L (3.5-5.1); Protein, Total 6.9 g/dL (6.4-8.2); Troponin High Sensitivity 4.3 pg/mL (<58.9)
--- NOTE | 2022-11-01 15:14 | ER ---
Nurse's Notes [facility] Name: Pippa John Age: 61 yrs Sex: Female : 1960 Arrival Date: 11/01/2022 Time: 11:46 Bed 11 Private MD: Capri Scott H Diagnosis: Acute sinusitis, unspecified Presentation: 11/01 12:57 Chief complaint: Spouse and/or significant other states: Burning pain to chest and back ph worse with eating, cough, congestion, nausea, subjective fever and fatigue x 1 week. Coronavirus screen: Vaccine status: Patient reports being unvaccinated. Ebola Screen: No symptoms or risks identified at this time. Initial Sepsis Screen: Does the patient meet any 2 criteria? No. Patient's initial sepsis screen is negative. Does the patient have a suspected source of infection? No. Patient's initial sepsis screen is negative. Risk Assessment: Do you want to hurt yourself or someone else? Patient reports no desire to harm self or others. Onset of symptoms was November 01, 2022. 12:57 Method Of Arrival: Ambulatory ph 12:57 Acuity: TORRI 3 ph Historical: - Allergies: 12:59 Epinephrine; ph 12:59 Minocin; ph 12:59 Rocephin; ph - PSHx: 12:59 hysterectomy; tubal; Skin graft Left arm; ph - Immunization history:: Adult Immunizations unknown. - Social history:: Smoking status: Reported history of juuling and/or vaping. Screenin:15 [facility] ED Fall Risk Assessment (Adult) History of falling in the last 3 months, ko1 including since admission No falls in past 3 months (0 pts) Confusion or Disorientation No (0 pts) Intoxicated or Sedated No (0 pts) Impaired Gait No (0 pts) Mobility Assist Device Used No (0 pt) Altered Elimination No (0 pt) Score/Fall Risk Level 0 - 2 = Low Risk Oriented to surroundings, Maintained a safe environment, Educated pt \T\ family on fall prevention, incl call for assistance when getting out of bed, Assessed \T\ reinforced patient's understanding of fall precautions, Provided non-skid footwear, Hourly rounding (assess needs \T\ fall precautionary measures) done, Used ambulatory aids as needed (educated on \T\ assisted with), Used gait belt as appropriate. Abuse screen: Denies threats or abuse. Denies injuries from another. Nutritional screening: No deficits noted. Tuberculosis screening: No symptoms or risk factors identified. Assessment: 13:15 General: Appears in no apparent distress. uncomfortable, Behavior is calm, cooperative, ko1 appropriate for age. Pain: Complains of pain in chest. Neuro: No deficits noted. Cardiovascular: No deficits noted. Respiratory: No deficits noted. GI: No deficits noted. : No deficits noted. EENT: No deficits noted. Derm: No deficits noted. Musculoskeletal: No deficits noted. Vital Signs: 12:57 BP 125 / 77; Pulse 68; Resp 18; Temp 97.1; Pulse Ox 100% on R/A; Weight 59.87 kg; ph Height 5 ft. 7 in. ; 15:05 BP 134 / 66; Pulse 72; Resp 18; Pulse Ox 99% on R/A; ko1 12:57 Body Mass Index 20.67 (59.87 kg, 170.18 cm) ph ED Course: 11:48 Patient arrived in ED. rg4 11:49 Capri Scott DO is Private Physician. rg4 12:07 Joanne Tom FNP-C [facility]. kb 12:07 Kasandra Hernandez MD is Attending Physician. kb 12:59 Triage completed. ph 13:00 Arm band placed on Patient placed in an exam room. ph 13:02 XRAY Chest (1 view) In Process Unspecified. EDMS 13:11 Niurka Sena, RN is Primary Nurse. ko1 13:15 Patient has correct armband on for positive identification. Placed in gown. Bed in low ko1 position. Call light in reach. Side rails up X 1. Client placed on continuous cardiac and pulse oximetry monitoring. NIBP monitoring applied. 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 13:15 No provider procedures requiring assistance completed. Inserted saline lock: 22 gauge ko1 in right antecubital area, using aseptic technique. Blood collected. 13:26 CBC with Diff Sent. ko1 13:26 Magnesium Sent. ko1 13:26 Troponin HS Sent. ko1 13:26 CMP Sent. ko1 13:26 Flu Sent. ko1 13:26 SARS-COV-2 Antigen Rapid Sent. ko1 15:16 IV discontinued, intact, bleeding controlled, No redness/swelling at site. Pressure ko1 dressing applied. Administered Medications: 13:26 Drug: Pantoprazole IVP 40 mg Route: IVP; Site: right antecubital; ko1 15:12 Drug: predniSONE PO 40 mg Route: PO; ko1 Medication: 13:15 VIS not applicable for this client. ko1 Outcome: 15:14 Discharge ordered by . karrie 15:16 Discharged to home ambulatory. ko1 15:16 Condition: stable 15:16 Discharge instructions given to patient, Instructed on discharge instructions, follow up and referral plans. medication usage, Demonstrated understanding of instructions, follow-up care, medications, Prescriptions given X 2. 15:26 Patient left the ED. ko1 Signatures: Dispatcher [employer] EDMS Joanne Tom, FIREARMS EXPERT-C FIREARMS EXPERT-Valentina Schwartz, RN RN Leah Zavaleta rg4 Niurka Sena RN RN ko1
--- NOTE | 2022-11-01 15:14 | EDPHYS ---
Physician Documentation [facility] Name: Pippa John Age: 61 yrs Sex: Female : 1960 Arrival Date: 11/01/2022 Time: 11:46 Bed 11 Private MD: Capri Scott H ED Physician Kasandra Hernandez HPI: 11/01 15:12 This 61 yrs old Female presents to ER via Ambulatory with complaints of Flu Symptoms. kb 15:12 The patient or guardian reports cough, that is intermittent, described as mild, flu kb symptoms, low-grade fever, myalgias, no appetite. Onset: The symptoms/episode began/occurred 1 week(s) ago. Severity of symptoms: At their worst the symptoms were moderate, in the emergency department the symptoms are unchanged. Modifying factors: The symptoms are alleviated by nothing, the symptoms are aggravated by nothing. Associated signs and symptoms: Pertinent positives: chest pain, fever, nausea, rhinorrhea, sore throat. The patient has not experienced similar symptoms in the past. The patient has not recently seen a physician. Historical: - Allergies: 12:59 Epinephrine; ph 12:59 Minocin; ph 12:59 Rocephin; ph - PSHx: 12:59 hysterectomy; tubal; Skin graft Left arm; ph - Immunization history:: Adult Immunizations unknown. - Social history:: Smoking status: Reported history of juuling and/or vaping. ROS: 15:11 Neuro: Negative for headache, weakness, numbness, tingling, and seizure. kb 15:11 Constitutional: Positive for body aches, chills, fatigue, fever, malaise. 15:11 ENT: Positive for ear pain, rhinorrhea, sinus congestion, sinus pain, sore throat. 15:11 Cardiovascular: Positive for chest pain. 15:11 Respiratory: Positive for cough. 15:11 All other systems are negative. Exam: 13:51 Head/Face: Normocephalic, atraumatic. ENT: Moist Mucous membranes Cardiovascular: kb Regular rate and rhythm with a normal S1 and S2. No gallops, murmurs, or rubs. No pulse deficits. Respiratory: Respirations even and unlabored. No increased work of breathing. Talking in full sentences Abdomen/GI: Soft, non-tender. No distention Skin: Warm, dry with normal turgor. Normal color. MS/ Extremity: Pulses equal, no cyanosis. Neurovascular intact. Full, normal range of motion. Neuro: Awake and alert, GCS 15, oriented to person, place, time, and situation. Moves all extremities. Normal gait. 13:51 ECG was reviewed by the Attending Physician. 15:11 Constitutional: The patient appears alert, awake, uncomfortable. kb Vital Signs: 12:57 BP 125 / 77; Pulse 68; Resp 18; Temp 97.1; Pulse Ox 100% on R/A; Weight 59.87 kg; ph Height 5 ft. 7 in. ; 15:05 BP 134 / 66; Pulse 72; Resp 18; Pulse Ox 99% on R/A; ko1 12:57 Body Mass Index 20.67 (59.87 kg, 170.18 cm) ph MDM: 12:10 Patient medically screened. kb 15:10 Differential diagnosis: viral Infection, bacterial infection, URI, bronchitis, kb pneumonia. Data reviewed: vital signs, nurses notes. Counseling: I had a detailed discussion with the patient and/or guardian regarding: the historical points, exam findings, and any diagnostic results supporting the discharge/admit diagnosis, lab results, radiology results, the need for outpatient follow up, a family practitioner, to return to the emergency department if symptoms worsen or persist or if there are any questions or concerns that arise at home. 11/01 12:27 Order name: CBC with Diff; Complete Time: 13:51 kb 11/01 12:27 Order name: Magnesium; Complete Time: 14:10 kb 11/01 12:27 Order name: Troponin HS; Complete Time: 14:10 kb 11/01 12:27 Order name: CMP; Complete Time: 14:10 kb 11/01 12:27 Order name: Flu; Complete Time: 13:55 kb 11/01 12:27 Order name: SARS-COV-2 Antigen Rapid; Complete Time: 13:55 kb 11/01 12:27 Order name: XRAY Chest (1 view); Complete Time: 13:16 kb 11/01 12:27 Order name: EKG; Complete Time: 12:28 kb 11/01 12:27 Order name: Cardiac monitoring; Complete Time: 13:11 kb 11/01 12:27 Order name: EKG - Nurse/Tech; Complete Time: 13:12 kb 11/01 12:27 Order name: IV Saline Lock; Complete Time: 13:26 kb 11/01 12:27 Order name: Labs collected and sent; Complete Time: 13:26 kb 11/01 12:27 Order name: O2 Per Protocol; Complete Time: 13:11 kb 11/01 12:27 Order name: O2 Sat Monitoring; Complete Time: 13:11 kb EC:51 Rate is 56 beats/min. Rhythm is regular. QRS [place] is Normal. PA interval is normal at kb 160 msec. QRS interval is normal at 82 msec. QT interval is normal at 399 msec. Administered Medications: 13: Drug: Pantoprazole IVP 40 mg Route: IVP; Site: right antecubital; ko1 15:12 Drug: predniSONE PO 40 mg Route: PO; ko1 Disposition Summary: 11/01/22 15:14 Discharge Ordered Location: Home kb Condition: Stable kb Diagnosis - Acute sinusitis, unspecified kb Followup: kb - With: Emergency Department - When: As needed - Reason: Worsening of condition Followup: kb - With: Private Physician - When: 2 - 3 days - Reason: Recheck today's complaints, Continuance of care, Re-evaluation by your physician Discharge Instructions: - Discharge Summary Sheet kb - Sinusitis, Adult, [id number] kb Forms: - Medication Reconciliation Form kb - Thank You Letter kb - Antibiotic Education kb - Prescription Opioid Use kb Prescriptions: - Prednisone 20 mg Oral Tablet - take 1 tablet by ORAL route once daily for 5 days; 5 tablet; Refills: 0, kb Product Selection Permitted - Tessalon Perles 100 mg Oral Capsule - take 1 capsule by ORAL route every 8 hours As needed; 15 capsule; Refills: 0, kb Product Selection Permitted Signatures: Dispatcher [employer] Joanne Heredia, Valentina De La Rosa RN RN Niurka Terrell RN RN ko1
[2022-11-01] MEDS ORDERED: predniSONE 20 MG TAB ONE (15:20)
[2022-11-01 16:11] VITALS: TEMP 97.1
[2022-11-01 16:13] VITALS: BP 134/66; O2SAT 99
--- NOTE | 2022-11-03 05:00 | EKG ---
Test Date: 2022-11-01 Test Time: 13:43:24 Black Top Paver Operator: BRITTNEY MEASUREMENT RESULTS: Intervals: Rate: 56 [place]: 160 QRSD: 82 QT: 414 QTc: 399 [place]: P: 80 CO: 160 QRS: 84 T: 74 INTERPRETIVE STATEMENTS: Sinus tachycardia with 2nd degree AV block Abnormal ECG Compared to ECG 03/13/2021 02:17:41 Sinus bradycardia no longer present Electronically Signed On 11-03-22 04:54:48 CDT by Fercho Sellers
== END 2022-11-01 15:26 | disposition home or self-care (01) ==
LOC: ER 11:46
DX: J01.90 Acute sinusitis, unspecified (principal)
CPT/HCPCS: 36415; 71045; 80053; 83735; 84484; 85025; 87804; 87811; 93005; C9113; J7512